=== PATIENT | female | born 1960 | race Caucasian/White ===

== ENCOUNTER → 2016-11-25 | Outpatient (CLI) | payer OTHER | LOC: MMPC 09:00 | DX: M54.5 Low back pain (principal); F32.9 Major depressive disorder, single episode, unspecified; Z13.6 Encounter for screening for cardiovascular disorders; E55.9 Vitamin D deficiency, unspecified; I89.0 Lymphedema, not elsewhere classified; G25.81 Restless legs syndrome; K21.9 Gastro-esophageal reflux disease without esophagitis; G44.1 Vascular headache, not elsewhere classified | CPT/HCPCS: 99213; G0463 ==

== ENCOUNTER → 2016-12-16 | Outpatient (CLI) | payer OTHER ==
[2016-12-16 12:29] LABS: BASOPHILS # (AUTO) 0.03 10*3/UL; BASOPHILS % (AUTO) 0.6 % (0-1); EOSINOPHILS # (AUTO) 0.16 10*3/UL; HEMOGLOBIN 14.1 g/dL (12.0-16.0); LYMPHOCYTES # (AUTO) 2.41 10*3/uL; MEAN CORPUSCULAR HEMOGLOBIN 30.9 PG (27-31); MEAN CORPUSCULAR HGB CONC 33.6 g/dL (33-37); MEAN CORPUSCULAR VOLUME 92.1 FL (81-99); MEAN PLATELET VOLUME 9.5 FL (7.4-12.2); MONOCYTES % (AUTO) 7.5 % (5-15); NEUTROPHILS # (AUTO) 2.31 10*3/UL; NEUTROPHILS % (AUTO) 43.4 % (50-80); RED BLOOD COUNT 4.56 10^6/uL (4.20-5.40)
[2016-12-16 12:31] LABS: BILIRUBIN,URINE NEGATIVE (NEG); COLOR,URINE YELLOW; GLUCOSE, URINE (UA) NEGATIVE (NEG); NITRATE,URINE NEGATIVE (NEG); OCCULT BLOOD,URINE NEGATIVE (NEG); PH,URINE 5.5 (5.0-8.5); PROTEIN,URINE NEGATIVE (NEG)
[2016-12-16 12:34] LABS: BACTERIA,URINE FEW; CLARITY,URINE CLEAR (CLEAR); SQUAMOUS EPITHELIAL CELL,UR MODERATE; URINE SAMPLE TYPE VIOD; WBC,URINE 0-3
[2016-12-16 12:40] LABS: BLOOD UREA NITROGEN 12 mg/dL (7-22); CALCIUM 9.3 mg/dL (8.7-10.7); CHOL/HDL RATIO 2.93 RATIO (0-4.0); EST GLOMERULAR FILTRATION > 60 (>60 ml/min/1.73m(2)); HDL CHOLESTEROL 60 mg/dL (40-150); SERUM ALBUMIN 4.4 g/dL (3.5-4.8); SERUM CHOLESTEROL 176 mg/dL (120-200)
[2016-12-16 13:05] LABS: PLATELET MORPHOLOGY COMMENT NORMAL MORPHOLOGY (NORM); RBC MORPHOLOGY COMMENT NORMAL MORPHOLOGY (NORM); WBC MORPHOLOGY COMMENT NORMAL MORPHOLOGY (NORM)
== END ==
LOC: LAB 12:17
DX: I89.0 Lymphedema, not elsewhere classified (principal); K21.9 Gastro-esophageal reflux disease without esophagitis; E55.9 Vitamin D deficiency, unspecified; F32.9 Major depressive disorder, single episode, unspecified
CPT/HCPCS: 36415; 80053; 80061; 81001; 82306; 84443; 85025

== ENCOUNTER → 2016-12-24 | Outpatient (CLI) | payer OTHER | LOC: MMPC 11:11 | DX: M54.5 Low back pain (principal); F32.9 Major depressive disorder, single episode, unspecified; G25.81 Restless legs syndrome; I45.6 Pre-excitation syndrome; E55.9 Vitamin D deficiency, unspecified | CPT/HCPCS: 99213; G0463 ==

== ENCOUNTER → 2017-03-18 | Outpatient (CLI) | payer OTHER | LOC: MMPC 11:11 | DX: Z23 Encounter for immunization (principal) | CPT/HCPCS: 90715; G0463 ==